=== PATIENT | male | born 1975 | race Caucasian/White ===

== ENCOUNTER → 2020-07-03 | Outpatient (CLI) | payer BC, OTHER ==
[~2020-07-03] VITALS: Ht 170.2 cm; Wt 68.9 kg
[~2020-07-03] MED LIST: FAMOTIDINE 40 M40 M1 PO; JANUVIA 50 MG T50 MG PO; JARDIANCE25 MG PO; LISINOPRIL2.5 MG PO; METFORMIN HCL500 M3 PO; PROAIR HFA8.5 GM INH; ZOCOR20 MG PO
[2020-07-03 10:03] VITALS: BP 126/72
[2020-07-03 10:55] LABS: PROTIME 10.4 Seconds (9.3-11.4)
[2020-07-03 13:16] VITALS: BP 107/67
[2020-07-03 13:25] LABS: BASOPHILS 1.4 % (0.0-2.0); HEMATOCRIT 39.1 % (42.0-52.0); HEMOGLOBIN 12.3 gm/dL (14.0-18.0); LYMPHOCYTES 9.9 % (24.0-44.0); MCH 21.7 pg (26.0-34.0); MCHC 31.5 g/dL (28.0-37.0); MCV 68.8 fL (80.0-100.0); MONOCYTES 11.6 % (1.0-8.0); PLATELET COUNT 310 thou/uL (150-400); POLYS 74.1 % (36.0-66.0); RBC 5.68 mil/uL (4.50-6.00); RDW 17.6 % (10.5-14.5); WBC 8.1 thou/uL (4.0-11.0)
[2020-07-03 14:13] LABS: ANISOCYTOSIS 1+; HYPOCHROMASIA 2+; MICROCYTES 2+
--- NOTE | 2020-07-12 14:07 | PATH ---
[facility] [address] [place] [address] PATHOLOGY RPT PROCEDURE Name: REYNALDO QUESADA Room #: REG CL M.R.#: [id number] Admission: 07/03/20 Date of : 77 Discharge: Report #: [id number] Path Case #: [id number] [facility] Accession Number: [id number] . 01 Material submitted: . PART A: bone - BONE MARROW BIOPSY PART B: bone - BONE MARROW CLOT PART C: bone - BONE MARROW ASPIRATE SLIDES PART D: bone - PERIPHERAL BLOOD SMEARS PART E: bone - BONE MARROW FLOW . 01 Clinical history: . 45-year-old man with mild microcytic anemia and a history of leukocytosis. . 02 Diagnosis: Bone marrow aspirate, biopsy, cell clot and peripheral blood: - Peripheral blood with mild microcytic anemia and mild relative neutrophilia/relative lymphopenia. - Normocellular bone marrow with trilineage hematopoiesis, mild erythroid hyperplasia, mild (no significant) dyspoiesis and no evidence of lymphoma or acute leukemia. - No stainable iron. - See comment. (CLW:pedro 07/08/2020) . . Special studies report received from [facility], [address] [place] [address], [address], [place], [address], on case [id number], labeled with their number [id number], dated 07/07/2020. . Flow Cytometry: Hematologic Neoplasia Assessment . Clinical History . . Indication for Study Evaluation for hematolymphoid neoplasia . Specimen Bone Marrow . Interpretation Bone Marrow: 1) No aberrant immunophenotypic expression detected on neutrophilic cells 2) No increase in CD34+ myeloid blasts (1.5%) 3) Monocytic cells (3%) with partial, weak CD56, non-specific 4) Relatively increased erythroid cells . [address] [address] PATHOLOGY RPT PROCEDURE Name: REYNALDO QUESADA Room #: REG [facility] Deanna.#: [id number] Admission: 07/03/20 Date of : 77 Discharge: Report #: [id number] Path Case #: [id number] Comments The flow cytometry results are non-specific. Correlation with available clinical, laboratory, and morphologic data is recommended. . Populations Analyzed Myeloid Blasts: 1.5% Not increased Lymphocytes: 6% B-cells: 0.4%, polytypic T-cells: no aberrant antigenic expression CD4:CD8: 0.9 CD4+/CD57+ T-cells: <0.1% CD8+/CD57+ T-cells: 0.6% NK-cells: 0.2% Neutrophilic Cells: 70% No significant abnormalities of the markers tested Monocytic Cells: 3% Partial, aberrant expression of CD56 (30%), non-specific Eosinophils: 3% No relative increase Basophils: 1.3% No relative increase Plasma Cells: <0.1% Few detected(plasma cells are typically underrepresented by flow cytometry; cytoplasmic light chains were not assessed) Erythroid cells 15% Relatively increased, includes 2% CD117+/glyA+ (unlysed tube): cells compatible with pronormoblasts (erythroid precursors may be underrepresented due to sample lysis/processing) . Reagent(s) Used CD2, CD3, CD4, CD5, CD7, CD8, CD10, CD11b, CD13, CD14, CD16, CD19, CD20, CD33, CD34, CD38, CD45, CD56, CD57, CD64, CD117, HLA-DR, kappa, lambda . at [employer]. Amrik Bradford MD Pathologist . . Intended Use Flow cytometry is optimally used to immunophenotypically characterize abnormal populations when they are detected. Negative flow cytometry results do not exclude lymphoma or neoplasia. Possible false negative flow cytometry results may occur in, but are not limited to, the following: neoplastic cells in Hodgkin lymphoma are not typically adequately represented by routine clinical flow cytometry; neoplastic cells may be lost or inadequately represented due to degeneration, sample processing, sampling artifact, or patchy involvement; plasma cells are typically underrepresented by flow cytometry; immature cells/blasts may be underrepresented due to hemodilution; myeloproliferative disorders and low grade myelodysplasia may not have immunophenotypic abnormalities or [address] [address] PATHOLOGY RPT PROCEDURE Name: QUESADAREYNALDO Room #: REG CLI Oma#: [id number] Admission: 07/03/20 Date of : 77 Discharge: Report #: [id number] Path Case #: [id number] increased blasts. Correlation with all available clinical, laboratory, and morphologic data is always necessary to assess for the possibility of false negative flow cytometry results and to establish a diagnosis. Each marker in this analysis was used to assess for potential antigenic abnormalities or to evaluate detected abnormalities. . Any image or images that accompany this report are customer assistance representative images only and should not be used to render a diagnosis. . Disclaimer(s) This test was developed and its performance characteristics determined by [employer]. It has not been cleared or approved by the Food and Drug Administration. . Performing Labs [facility] is a business unit of [employer] a wholly-owned subsidiary of [employer]. . Test Performed Component Type Performed At Data Entry Representative Comprehensive Technical- [facility] Dr. Botello [facility] Specimen [employer] MD [place] [employer] [address] [address]. CLIA# [id number] . Comprehensive Professional [employer] [facility]. [facility] [employer] MD [address] [place] [address]. CLIA #[id number] . . For inquiries, the physician may contact Lab: [phone] . . A complete copy of the report is on file. . Professional services performed by [employer]. at [address], [place] [address]. Technical services performed by [employer]. at [address], [place] [address]. . (CLW:amcarolyn 07/08/2020) . AZJ 07/08/2020 120[address] Local [facility] [place] [address] PATHOLOGY RPT PROCEDURE Name: REYNALDO QUESADA Room #: REG CL M..#: [id number] Admission: 07/03/20 Date of : 77 Discharge: Report #: [id number] Path Case #: [id number] . 02 Comment: Overall the bone marrow is normocellular for the patient's age with trilineage hematopoiesis, mild erythroid hyperplasia, mild (no significant) dyspoiesis and no evidence of lymphoma or acute leukemia. The dyspoiesis does not meet the morphologic criteria for myelodysplasia. Of note, no stainable iron is identified. Correlation with clinical history, additional laboratory data and cytogenetics is recommended. (CLW:[facility] 07/08/2020) . . 02 Addendum: . Special studies report received from [facility], [address] [place] [address], [address], [place], [address], on case [id number], labeled with their number [id number], dated 07/12/2020. . Cytogenetic Analysis Report . RESULT: Normal Male Karyotype 46,XY(20) . Specimen Type: Bone Marrow . 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 INTERPRETATION: Cytogenetic analysis revealed no evidence of an acquired clonal abnormality. These findings should be interpreted in the context of clinical and pathologic findings. . . Number of Metaphases Counted: 20 Banding: G-banding Number of Metaphase Cells Analyzed: 20 Band Level: 400 Number of Metaphase Cells Karyotyped: 2 Cultures Established: Unstimulated/Stimulated . at [employer]. Chris Agudelo, Ph.D., [facility] Director of Cytogenetics and Molecular Oncology . Disclaimer(s): Any image(s) that accompany this report is/are a customer assistance representative image(s) only and should not be used to render a diagnosis. . Based on the resolution of this study, standard cytogenetic methodology does not routinely detect subtle or sub-microscopic rearrangements or low level mosaicism. [address] [address] PATHOLOGY RPT PROCEDURE Name: REYNALDO QUESADA Room #: REG CL M..#: [id number] Admission: 07/03/20 Date of : 77 Discharge: Report #: [id number] Path Case #: [id number] . Performing Labs: This Test was performed at [facility]. at [address] [address], [place], [address]. [facility] is a business unit of [employer] a wholly-owned subsidiary of [employer]. . A complete copy of the report is on file. . Professional services performed by [facility]. at [address], [place] [address]. Technical services performed by [employer]. at [address], [place] [address]. . (CLW:am 07/12/2020) AZJ/07/12/2020 Addendum Electronically Signed by Carol Ricks MD, Pathologist . 02 Electronically signed: . Carol Ricks MD, Pathologist NPI- [id number] . 01 Gross description: . A. The specimen is received in formalin, labeled "Reynaldo Quesada, BM biopsy". Received is a single needle core of light greenwood bone measuring 0.9 cm in length by 0.3 cm in diameter. The specimen is submitted entirely in cassette A1, following light decalcification. . B. The specimen is received in formalin, labeled "Reynaldo Quesada, BM aspirate". Received is blood coagulum measuring 2.1 x 1.1 x 0.1 cm in aggregate dimensions. The specimen is filtered and entirely submitted in cassette B1. (CAA; 07/03/2020) QAC/QAC 07/03/2020 1633 Local . 02 Microscopic: . CBC Data (07/03/2020): WBC 8,100 /uL, RBC 5.68, hemoglobin 12.3 g/dL, hematocrit 39.1%, MCV 68.8 fL, MCH 21.7 pg, MCHC 31.5 g/dL, RDW 17.6%, and platelet count 310,000 /uL. White blood cell differential: segs 74.1%, lymphs 9.9%, monos 11.6%, eos 3.0%, and basos 1.4%. . Peripheral Blood Smear: Cytomorphological examination of the Verdugo's stained peripheral blood smear confirms the provided data. Red blood cells show mild microcytic anemia with mild anisocytosis. No significant poikilocytosis is identified. White blood cells are predominantly segmented neutrophils and are without significant dyspoiesis or significant left shift. Lymphocytes [facility] [address] [place] [address] PATHOLOGY RPT PROCEDURE Name: REYNALDO QUESADA Room #: REG CLYancy Ernandez#: [id number] Admission: 07/03/20 Date of : 77 Discharge: Report #: [id number] Path Case #: [id number] are predominantly small, round, and mature appearing with condensed chromatin and scant cytoplasm with admixed large granular lymphocytes and rare reactive appearing lymphocytes. On scanning, no markedly atypical lymphoid cells are seen. Monocytes are mature. Platelets are adequate in number and mainly normal in morphology with rare larger platelets noted. . Aspirate Smears: Cytomorphological examination of the Verdugo's stained aspirate smears show spicules present. The overall cellularity is approximately 60%. The myeloid to erythroid ratio is 2:1. Full myeloid maturation is identified and is without significant dyspoiesis. Erythroid maturation is mildly dyserythropoietic with irregular nuclear contours. In a 500 cell differential, there are 2% blasts (no Fernando rods are seen), 60% more differentiated myeloids, 29% erythroid precursors, and 9% lymphocyte. Megakaryocytes are proportional in number and both normal and abnormal in morphology with variable sizes in nuclear abnormalities. No lymphoid aggregates or markedly atypical lymphoid cells are seen. Plasma cells are without atypia. Iron stain of the aspirate smear shows 0/4+ iron positivity with spicules present. No ringed sideroblasts are identified. . Core Biopsy and Cell Clot: The decalcified bone marrow core biopsy is adequate. The bone marrow is normocellular with an overall cellularity of approximately 60%. The myeloid to erythroid ratio is 1-2:1. Myeloid maturation is without significant dyspoiesis. Erythroid maturation is mildly dyserythropoietic. Megakaryocytes are normal in number and both normal and abnormal in morphology. No lymphoid aggregates or markedly atypical lymphoid cells are seen. Bony trabeculae and blood vessels are unremarkable. The cell clot has spicules present that are similar in cellularity and differential morphology as previously described. A mild eosinophilia is noted. . Properly controlled special stains are performed. Block A1: Iron - No stainable iron (0/4+ iron positivity); Reticulin - No reticulin fibrosis. . Block B1: Iron - No stainable iron (0/4+ iron positivity) with spicules present. . Flow Cytometry: Flow cytometric immunophenotypic analysis was performed at [facility] [place] [place]. The diagnosis is "no aberrant immunophenotypic expression detected on neutrophilic cells; no increase in CD34 positive myeloid blasts (1.5%); monocytic cells (3%) with partial, weak CD56, nonspecific; and relatively increased erythroid cells." There are 1.5% myeloid blasts. There are 6% lymphocytes. Of the lymphocytes, there are 0.4% polyclonal B-cells. T-cells have a CD4/CD8 ratio of 0.9 and no aberrant T-cell antigen expression. Please see separate flow cytometry report from [address] [address] PATHOLOGY RPT PROCEDURE Name: REYNALDO QUESADA Room #: REG CLI [facility].#: [id number] Admission: 07/03/20 Date of : 77 Discharge: Report #: [id number] Path Case #: [id number] [facility] [place] [place] ([id number]). . Cytogenetics Analysis: Cytogenetic chromosomal analysis is pending at [facility] [place] [place] ([id number]). (CLW:pedro 07/08/2020) . 02 Pathologist provided ICD-10: D50.9, D72.810, D75.89 . 02 CPT . 523033, 932750, 636660, 704678, 570644, 371897, 811461, 096875, 733032 Specimen Comment: A courtesy copy of this report has been sent to [phone] Specimen Comment: [id number] Specimen Comment: Report sent to ,DR MANCINI / DR MOON Performed at: 01 [facility] [address] [id number] MD Herman Lo MD Phone: [phone] Performed at: 02 [facility] [address] [id number] MD Candelario Perez MD Phone: [phone]
== END | disposition home or self-care (01) ==
LOC: SPEC 09:15
PROVIDERS: Radiology Diagnostic Radiology; ATTEND Radiology Diagnostic Radiology
DX: D72.829 Elevated white blood cell count, unspecified (principal); D75.89 Other specified diseases of blood and blood-forming organs; D72.810 Lymphocytopenia; D50.9 Iron deficiency anemia, unspecified; Z98.890 Other specified postprocedural states; Z79.899 Other long term (current) drug therapy

== ENCOUNTER → 2020-08-01 | Outpatient (CLI) | payer BC, OTHER ==
[2020-08-01 09:25] VITALS: BP 122/82
[2020-08-01 11:30] VITALS: BP 123/73
--- NOTE | 2020-08-01 12:34 | NUR ---
IN FOR 1ST OF 5 VENOFER INFUSIONS FOR IRON DEFICIENCY ANEMIA. STATED FEELING WELL. DENIED PAIN. ADMISSION HISTORY AND ASSESSMENT COMPLETED. IV PLACED IN LFA AND INFUSED VENOFER OVER 1 HOUR. PATIENT TOLERATED WELL. POST VITAL SIGNS GOOD. REMOVED IV AND DISMISSED IN GOOD CONDITION. TO RETURN NEXT WEDNESDAY FOR 2ND INFUSION.
== END ==
LOC: OPONC 08:55
PROVIDERS: ATTEND Family Medicine
DX: D50.9 Iron deficiency anemia, unspecified (principal)
CPT/HCPCS: 95000

== ENCOUNTER → 2020-08-06 | Outpatient (CLI) | payer BC, OTHER ==
[2020-08-06 12:10] VITALS: BP 116/81
[2020-08-06 13:00] VITALS: BP 109/79
--- NOTE | 2020-08-06 14:39 | NUR ---
IN FOR 2ND OF 5 VENOFER INFUSIONS FOR IRON DEFICIENCY ANEMIA. PATIENT STATED HE DID NOT HAVE ANY SIDE EFFECTS FROM 1ST DOSE LAST WEEK. IV PLACED IN LAC AND INFUSED VENOFER OVER 30 MINUTES. TOLERATED WELL. POST VITAL SIGNS GOOD. REMOVED IV AND DISMISSED IN GOOD CONDITION. TO RETURN WEDNESDAY FOR 3RD INFUSION.
== END ==
LOC: OPONC 11:55
PROVIDERS: ATTEND Family Medicine
DX: D50.9 Iron deficiency anemia, unspecified (principal); R79.89 Other specified abnormal findings of blood chemistry
CPT/HCPCS: 95000

== ENCOUNTER → 2020-08-09 | Outpatient (CLI) | payer BC, OTHER ==
[2020-08-09 09:05] VITALS: BP 121/70
[2020-08-09 09:55] VITALS: BP 111/63
--- NOTE | 2020-08-09 11:17 | NUR ---
IN FOR 3RD OF 5 VENOFER INFUSIONS FOR IRON DEFICIENCY ANEMIA. PATIENT STATED FEELING WELL AND HAS HAD NO SIDE EFFECTS FROM 1ST 2 INFUSIONS. IV PLACED AND INFUSED VENOFER OVER 30 MINUTES. TOLERATED WELL. POST BP GOOD. TO RETURN NEXT WEDNESDAY FOR 4TH INFUSION. DISMISSED IN GOOD CONDITION.
== END ==
LOC: OPONC 09:00
PROVIDERS: ATTEND Family Medicine
DX: D50.9 Iron deficiency anemia, unspecified (principal); R79.89 Other specified abnormal findings of blood chemistry
CPT/HCPCS: 95000

== ENCOUNTER → 2020-08-13 | Outpatient (CLI) | payer BC, OTHER ==
[2020-08-13 12:24] VITALS: BP 112/76
[2020-08-13 12:50] VITALS: BP 114/79
--- NOTE | 2020-08-13 13:04 | NUR ---
IN FOR #4 OF 5 VENOFER INFUSIONS FOR IRON DEFICIENCY ANEMIA. PATIENT STATED HE THINKS HE HAS A LITTLE MORE ENERGY. DENIED ANY SIDE EFFECTS FROM PREVIOUS INFUSIONS. IV PLACED IN LDFT FOREARM AND INFUSED VENOFER OVER 30 MINUTES. TOLERATED WELL. POST BP GOOD. REMOVED IV AND DISMISSED IN GOOD CONDITION. TO RETURN WEDNESDAY FOR FINAL INFUSION.
== END ==
LOC: OPONC 11:52
PROVIDERS: ATTEND Family Medicine
DX: D50.9 Iron deficiency anemia, unspecified (principal); R79.89 Other specified abnormal findings of blood chemistry
CPT/HCPCS: 95000

== ENCOUNTER → 2020-08-16 | Outpatient (CLI) | payer BC, OTHER ==
[2020-08-16 12:05] VITALS: BP 131/82
[2020-08-16 12:50] VITALS: BP 121/82
--- NOTE | 2020-08-16 13:48 | NUR ---
IN FOR FINAL VENOFER INFUSION FOR IRON DEFICIENCY ANEMIA. STATED FEELING WELL. IV PLACED IN LFA AND INFUSED VENOFER OVER 30 MINUTES. TOLERATED WELL. POST BP GOOD. REMOVED IV AND DISMISSED IN GOOD CONDITION.
== END ==
LOC: OPONC 12:00
PROVIDERS: ATTEND Family Medicine
DX: D50.9 Iron deficiency anemia, unspecified (principal); R79.89 Other specified abnormal findings of blood chemistry
CPT/HCPCS: 95000